=== PATIENT | female | born 1975 | race Caucasian/White ===

== ENCOUNTER 2017-12-27 13:06 | Emergency (ER) | payer MEDICAID, SELFPAY ==
[2017-12-27 13:11] VITALS: BP 137/107; PULSE 94; RESP 20; TEMP 37.6; O2SAT 99
--- NOTE | 2017-12-27 15:55 | W.ED.GENAD ---
Discharge Plan Disposition Patient Disposition: HOME Condition: Good Discharge Details Chief Complaint: RashLesion Clinical Impression: Rash Primary Care Provider: NONE,NONE ED Provider: Agustin Galeana Home Meds and New Rx's Prescriptions: New clotrimazole-betamethasone [Lotrisone] 1-0.05 % cream 1 applic TP BID 14 Days Qty: 45 RF: 0 diphenhydramine HCl 25 mg capsule 25 mg PO Q6H PRN (Reason: itching) Qty: 30 RF: 0 No Action omeprazole magnesium [Prilosec] 10 mg Susp,Delayed Release For Recon 40 mg PO DAILY RF: 0 Discharge Instructions Instructions: Acute Rash (ED) Additional Instructions: Please take the cream as directed, apply to the affected areas twice daily. Please make sure to wash all your close and hot water as well as your bed sheets. Please check your bed for any signs of bedbugs. If you notice any worsening of your symptoms, or any new symptoms such as vomiting, diarrhea, fever, chills, shortness of breath, chest pain, numbness, weakness, or fainting , please return immediately to the emergency department for reevaluation. Please follow up with your primary care provider as soon as possible for reassessment and reevaluation. As always, it was a pleasure participating in your medical care today. Discharge Data Discharge Date/Time-TO BE ENTERED AT DEPARTURE: 12/27/17 16:05 Medical Decision Making This is a 42-year-old female who presents for evaluation of a rash under her breasts and her groin. It is been present for the last 3 weeks. She states that it is improved slightly with nystatin powder, as well as ejhx-iqh-ixycqgb steroid ointment. She does admit to mild itching. Physical exam demonstrates no red flags of oral lesions, negative Nikolsky sign. No evidence of staph scalded skin syndrome, SJS, or TEN. No evidence of EM. Physical exam demonstrates an atypical rash, differential is broad, especially with her positive response to both steroids and antifungals. There does not appear to be any signs of scabies, however I am concerned for potential bedbugs. Patient denies any contact with bedbugs and states that she does look at her bed regularly. At this time we will prescribe an antifungal steroid combination cream, I recommended that she washes all of her bed sheets, and closed in hot water. And check for bedbugs. I also recommended that she chooses a new place of residence which she states that she is actively trying to do. We discussed red flags which to return, including the importance of close follow-up with her PCP and the patient understands. I have extensively reviewed the treatment plan and discharge instructions with the patient. I have addressed all patient concerns at this time. The patient was made aware of what symptoms to monitor for that would warrant a return to the emergency department. Discussed the plan with the patient, they demonstrate verbal understanding and agreement with our assessment and plan at this time. HPI General Date/Time Provider Initiated Documentation: 12/27/17 15:54. HPI Narrative: This is a 42-year-old female with a past medical history of depression who presents for evaluation of rash. Patient states that she was recently from her significant other, and moved into a new house which she describes as a hoarder house, she states that 3 weeks ago she developed a mild rash underneath her breasts, and now it has spread to her lower abdomen. Patient states that about a week and a half ago she tried using some nystatin powder which showed some improvement to her symptoms, she then switched to djou-gem-tubohnn steroid cream which also showed some improvement. However she came in today for evaluation of the potential cause of her symptoms. She does admit to itching. She denies any lesions in her mouth. She denies any vesicles. She denies any history of allergic reaction, chest pain, shortness of breath, recent tick bites, numbness tingling or weakness. She denies any other associated complaints at this time, she denies any other close contacts with similar rash. She denies any recent surgery, pertinent family history. She denies any IV or illicit drug use Related Data Home Medications Medication Instructions Recorded Confirmed clotrimazole-betamethasone 1 applic TP BID 14 Days #45 gm 12/27/17 [Lotrisone] diphenhydramine HCl 25 mg PO Q6H PRN #30 cap 12/27/17 omeprazole magnesium [Prilosec] 40 mg PO DAILY 12/27/17 12/27/17 Previous Rx's Medication Instructions Recorded clotrimazole-betamethasone 1 applic TP BID 14 Days #45 gm 12/27/17 [Lotrisone] diphenhydramine HCl 25 mg PO Q6H PRN #30 cap 12/27/17 Allergies Allergy/AdvReac Type Severity Reaction Status Date / Time prochlorperazine maleate AdvReac Severe Unverified 12/27/17 13:13 [From Compazine] General Stated Complaint: RashLesion GABRIELLE: 5 Review of Systems Review of Systems All systems reviewed & are unremarkable except as noted in HPI and below PFSH Family History Father Hyperlipidemia Medical History Depression Gastroesophageal reflux disease Impaired hearing Tobacco use disorder Social History Smoking/Tobacco Use Status: Current every day Surgical History Cervical Conization/LEEP Cholecystectomy Exam Narrative Exam Narrative: 1.Const: Well-nourished, Well-developed, appearing stated age 2.Eyes: PERRL, no conjunctival injection, and symmetrical lids. 3.ENT: Atraumatic external nose and ears. Moist MM. Neck: Symmetric, trachea midline, No thyromegaly. 4.CVS: +S1/S2, No murmurs or gallops. Peripheral pulses 2+ and equal in all extremities. Brisk capillary refill in all extremities. 5.RESP: Unlabored respiratory effort. Clear to auscultation bilaterally. No wheezes rales or rhonchi 6.GI: Soft, Nontender/Nondistended, No hepatosplenomegaly. No guarding or rebound. 7.MSK: Normocephalic/Atraumatic, Extremities w/o deformity or ttp No cyanosis or clubbing, Normal movement of all extremities 8.Skin: Patient demonstrates a mildly punctated erythematous rash underneath her breasts bilaterally and around her groin. There are some extensions by her sock line at her ankles. No oral lesions, no lesions on the hands or feet specifically. Rash is blanchable. No vesicles, no discharge. No linear lines on the intertriginous areas on her hands, elbows, or axillary region. Negative Nikolsky sign. No evidence of ulcer. 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 Sensation grossly intact, no focal neurologic deficits. 10.Psych: (AAO) x3. Appropriate mood and affect Course Vital Signs Temperature 37.6 C 12/27/17 13:11 Pulse 94 H 12/27/17 13:11 Respiratory Rate 20 12/27/17 13:11 Blood Pressure 137/107 H 12/27/17 13:11 Pulse Oximetry 99 12/27/17 13:11 Temperature 37.6 C 12/27/17 13:11 Temperature Source Temporal Artery Scan 12/27/17 13:11 Pulse 94 H 12/27/17 13:11 Respiratory Rate 20 12/27/17 13:11 Respiratory Effort 12/27/17 13:14 Blood Pressure 137/107 H 12/27/17 13:11 Blood Pressure Position Sitting 12/27/17 13:11 Pulse Oximetry 99 12/27/17 13:11 Oxygen Delivery Method Room Air 12/27/17 13:11 Oxygen Flow Rate 0 12/27/17 13:11 Pain Level 0 12/27/17 13:11
== END 2017-12-27 16:05 | disposition home or self-care (01) ==
PROVIDERS: Emergency Provider Student in an Organized Health Care Education/Training Program
DX: R21 Rash and other nonspecific skin eruption (principal)
CPT/HCPCS: 99283

== ENCOUNTER 2018-02-11 14:48 | Outpatient (REF) | payer MEDICAID, SELFPAY ==
--- NOTE | 2018-02-11 13:30 | PAPFT_PTH ---
PATIENT: Fátima Infante LOC: [facility] U#:[id number] AGE/SX: 43/F ROOM: RE02/11/[address]: Sierra Watkins APRN : 1975 BED: DIS: 02/11/2018 SPEC #: [id number] RECD: 02/12/18 13:09 STATUS: CASTILLO COLLIER #: [id number] JAE: 02/11/18 13:[address]: Sierra Watkins DEPT: COUNT INCLUDES THE [facility] Cytology RECD BY: Neida London Tissues: 1 - CX/ENDOCX FOR PAP SMEARS Procedures: PAP THIN PREP/UVM Screening HPV DNA PROBE Comments: [id number]
== END 2018-02-11 15:08 ==
LOC: LBN 14:48
PROVIDERS: PCP Nurse Practitioner; Visit Provider Nurse Practitioner
DX: Z12.4 Encounter for screening for malignant neoplasm of cervix (principal); Z11.51 Encounter for screening for human papillomavirus (HPV)
CPT/HCPCS: 88142; 87624

== ENCOUNTER 2018-02-16 01:14 | Outpatient (CLI) | payer MEDICAID, SELFPAY ==
--- NOTE | 2018-02-16 13:10 | DI.MAMMO_ITS ---
SYMPTOM/DIAGNOSIS: SCREENING, Z12.31 MAMMOGRAMS: Mammograms were interpreted according to the usual protocol including computer analysis with CAD system, tomosynthesis and C view imaging. The patient states previous exams 10 years ago from [place], [place]. which are no longer available for comparison. The breasts are composed of scattered fibroglandular densities, breast density, Category B. There are two areas of nodularity seen in the subareolar region of the right breast, one superiorly and the other in the lower inner quadrant. Spot compression views and ultrasound are requested for further evaluation. No significant abnormality is seen in the left breast. IMPRESSION: Left breast, category 1, negative. Right breast, category 0. SA ASSESSMENT OF FINDINGS: Incomplete: Needs additional imaging evaluation. Category 0. Patient will receive a letter notifying them of these results. BI-RADS category B. There are scattered areas of fibroglandular density.
== END 2018-02-16 01:34 ==
PROVIDERS: PCP Nurse Practitioner; Visit Provider Nurse Practitioner
DX: Z12.31 Encounter for screening mammogram for malignant neoplasm of breast (principal); R92.8 Other abnormal and inconclusive findings on diagnostic imaging of breast
CPT/HCPCS: 77063; 77067

== ENCOUNTER 2018-03-05 06:40 | Outpatient (CLI) | payer MEDICAID, SELFPAY ==
--- NOTE | 2018-03-05 14:45 | DI.COMBO_ITS ---
SYMPTOMS/DIAGNOSIS: F/U ABNORMAL MAMMO, TWO AREAS OF NODULARITY, RIGHT, ONE SUPERIORLY AND THE OTHER LOWER INNER QUADRANT ADDITIONAL VIEWS OF THE RIGHT BREAST AND RIGHT BREAST ULTRASOUND: Additional images are interpreted according to the usual protocol including tomosynthesis and 2D imaging. There is again seen a well-circumscribed nodule in the lower inner quadrant of the right breast. No other suspicious nodules are seen on the additional views of the right breast. Breast density B. A right breast ultrasound was performed. In the retroareolar region of the right breast, there is a 0.9 cm anechoic round avascular lesion, most consistent with a simple cyst. A small collection of cysts is seen in the lower inner quadrant of the right breast measuring 0.7 cm. No internal blood flow, posterior acoustic enhancement or shadowing is seen. No suspicious cystic or solid masses are seen sonographically. IMPRESSION: No evidence for malignancy. Yearly mammography is recommended. Category 2. The findings were discussed with the patient on the date of the examination. MQSA ASSESSMENT OF FINDINGS: Negative with benign findings. Category 2. Patient will receive a letter notifying them of these results. BI-RADS category B. There are scattered areas of fibroglandular density.
== END 2018-03-05 07:00 ==
PROVIDERS: PCP Nurse Practitioner; Visit Provider Nurse Practitioner
DX: Z12.31 Encounter for screening mammogram for malignant neoplasm of breast (principal); R92.8 Other abnormal and inconclusive findings on diagnostic imaging of breast; N60.11 Diffuse cystic mastopathy of right breast
CPT/HCPCS: 76642; 77063; 77067

== ENCOUNTER 2018-03-16 15:47 | Outpatient (REF) | payer MEDICAID, SELFPAY ==
--- NOTE | 2018-03-16 14:00 | CER_PTH ---
PATIENT: Fátima Infante LOC: [facility] U#:[id number] AGE/SX: 43/F ROOM: RE03/16/[address]: Julia Wooten MD : 1975 BED: DIS: 03/16/2018 SPEC #: [id number] RECD: 03/16/18 17:28 STATUS: CASTILLO REQ #: [id number] JAE: 03/16/18 14:[address]: Julia Wooten DEPT: Surgical Specimen RECD BY: Neida London ENTERED: 03/16/18 17:31 SP TYPE: CER ANTONIA DR: Sierra Watkins APRN Tissues: 1 - CERVICAL BIOPSY 2 - CERVICAL BIOPSY 3 - ENDOCERVICAL BX/CURRETTE Procedures: GROSS AND MICRO LEVEL 4 Comments: [id number]
== END 2018-03-16 16:07 ==
LOC: LBN 15:47
PROVIDERS: PCP Nurse Practitioner; Visit Provider Obstetrics & Gynecology
DX: N87.9 Dysplasia of cervix uteri, unspecified (principal); R87.610 Atypical squamous cells of undetermined significance on cytologic smear of cervix (ASC-US); B97.7 Papillomavirus as the cause of diseases classified elsewhere
CPT/HCPCS: 88305

== ENCOUNTER 2019-03-01 14:15 | Outpatient (CLI) | payer MEDICAID, SELFPAY ==
[2019-03-01 15:05] LABS: HCT 42.3 % (36.0-46.0); HGB 14.2 g/dL (12.0-15.5); Mean Corp. HGB Concentration 33.6 g/dL (32.0-36.0); Mean Corpuscular Volume 89.4 fL (80-95); Mean Platelet Volume 9.6 fL (8.0-11.0); Platelet Count 313 x1000/uL (130-400); RBC 4.73 m/cumm (4.00-5.20); RBC Distribution Width 12.8 % (11.7-14.6); White Blood Cell Count 10.72 k/cumm (4.4-10.8)
[2019-03-01 15:39] LABS: ALT 22 U/L (14-59); AST 11 U/L (15-37); Albumin 3.9 g/dL (3.4-5.0); Alkaline Phosphatase 61 U/L (46-116); Anion Gap 6.9 mmol/L (3-11); BUN 8 mg/dL (7-18); Bilirubin, Total 0.4 mg/dL (0.2-1.0); CO2 29.1 mmol/L (21.0-32.0); CREATININE 0.76 mg/dL (0.55-1.02); Calcium 8.8 mg/dL (8.5-10.1); Calculated LDL 144 mg/dL; Chloride 102 mmol/L (98-107); Cholesterol 196 mg/dL (<200); Glucose 86 mg/dL (74-106); HDL Cholesterol 40 mg/dL (40-60); Sodium 138 mmol/L (136-145); Total Protein 6.9 g/dL (6.4-8.2); Triglyceride 64 mg/dL (<150)
== END 2019-03-01 14:35 ==
PROVIDERS: PCP Nurse Practitioner; Visit Provider Nurse Practitioner
DX: F32.9 Major depressive disorder, single episode, unspecified (principal); K21.9 Gastro-esophageal reflux disease without esophagitis; E66.9 Obesity, unspecified
CPT/HCPCS: 36415; 80053; 80061; 85027

== ENCOUNTER 2019-03-03 16:13 | Outpatient (REF) | payer MEDICAID, SELFPAY ==
--- NOTE | 2019-03-03 15:45 | PAPFT_PTH ---
PATIENT: Fátima Infante LOC: [facility] U#:[id number] AGE/SX: 44/F ROOM: RE03/03/[address]: Sierra Watkins APRN : 1975 BED: DIS: 03/03/2019 SPEC #: [id number] RECD: 03/03/19 18:04 STATUS: CASTILLO COLLIER #: [id number] JAE: 03/03/19 15:[address]: Sierra Watkins DEPT: [facility] Cytology RECD BY: Neida London Tissues: 1 - CX/ENDOCX FOR PAP SMEARS Procedures: PAP THIN PREP/UVM Screening HPV DNA PROBE Comments: [id number]
== END 2019-03-03 16:33 ==
LOC: LBN 16:13
PROVIDERS: PCP Nurse Practitioner; Visit Provider Nurse Practitioner
DX: Z12.4 Encounter for screening for malignant neoplasm of cervix (principal); Z11.51 Encounter for screening for human papillomavirus (HPV)
CPT/HCPCS: 88142; 87624

== ENCOUNTER 2019-03-23 11:06 | Outpatient (CLI) | payer MEDICAID, SELFPAY ==
--- NOTE | 2019-03-23 10:54 | DI.RAD_ITS ---
EXAM: XR ANKLE LT COMPLETE INDICATION: pain. COMPARISON: No exams were available for comparison TECHNIQUE: 2D digital imaging was performed. FINDINGS: There is deformity of the distal fibula which may represent an old injury. The bones appear normally mineralized. No soft tissue swelling is seen. There is a lucency seen in the medial aspect of the talar dome. This may represent an osteochondral injury.
--- NOTE | 2019-03-23 10:55 | DI.RAD_ITS ---
EXAM: XR FOOT LT COMPLETE INDICATION: pain. COMPARISON: No exams were available for comparison TECHNIQUE: 2D digital imaging was performed. FINDINGS: There is deformity of the distal fibula. This is of uncertain acuity. If there is continued concern, a CT scan of the ankle may be obtained. Benign-appearing focus of sclerosis is seen in the 2nd metat arsal. Articular surfaces are well maintained. The soft tissues are unremarkable.
== END 2019-03-23 11:26 ==
PROVIDERS: PCP Nurse Practitioner; Visit Provider Orthopaedic Surgery
DX: M79.672 Pain in left foot (principal); M25.572 Pain in left ankle and joints of left foot; M21.862 Other specified acquired deformities of left lower leg
CPT/HCPCS: 73610; 73630

== ENCOUNTER 2019-11-29 17:29 | Emergency (ER) | payer MEDICAID, SELFPAY ==
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
[2019-11-29 17:37] VITALS: BP 131/80; PULSE 86; RESP 16; TEMP 36.2; O2SAT 99
--- NOTE | 2019-11-29 18:59 | NUR.NOTE ---
Nursing Note:RERFERAL SENT TO [facility] TO FOLLOW UP IN TWO DAYS 11/29/19
== END 2019-11-29 19:00 | disposition home or self-care (01) ==
LOC: ER 20:32
PROVIDERS: Emergency Provider Physician Assistant; PCP Nurse Practitioner
DX: L02.434 Carbuncle of left upper limb (principal)
CPT/HCPCS: 10061; 87070; 87205

== ENCOUNTER 2020-08-27 13:08 | Emergency (ER) | payer OTHER, SELFPAY ==
[2020-08-27 13:14] VITALS: BP 152/87; PULSE 83; TEMP 36.9; O2SAT 98
[2020-08-27] MEDS: Balanced Salt Solution 15 ML BTL (13:35)
[2020-08-27] MEDS: Tetracaine 0.5% 4 ML BTL (13:35)
[2020-08-27] MEDS: Fluorescein STRIPS 100/BOX 1 MG (13:35)
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
== END 2020-08-27 14:00 | disposition home or self-care (01) ==
PROVIDERS: Emergency Provider Physician Assistant; PCP Nurse Practitioner
DX: S05.01XA Injury of conjunctiva and corneal abrasion without foreign body, right eye, initial encounter (principal); W22.8XXA Striking against or struck by other objects, initial encounter; Y99.0 Civilian activity done for income or pay
CPT/HCPCS: 99283

== ENCOUNTER 2021-02-13 00:20 | Outpatient (CLI) | payer MEDICAID, SELFPAY ==
--- NOTE | 2021-02-13 06:45 | DI.MAMMO_ITS ---
Exam(s) MAMMO SCREENING EXAM: MAMMO SCREENING CLINICAL HISTORY: screening,Z12.39. TECHNIQUE: Bilateral full field digital CC and MLO mammographic images were obtained with 3D tomosyn thesis and utilizing computer aided detection (CAD). COMPARISON: Prior mammogram of January 2018 and diagnostic of March 03. Breast ultrasound March 2018 was reviewed. FINDINGS: Fibroglandular tissue pattern is again noted be moderately dense, this somewhat decreasing the sensit ivity mammogram for finding in underlying lesions. In the right breast the previously present retroareolar region nodule is no longer seen, further evid ence that it was a benign cyst, as evident on the prior ultrasound examination listed above. There are no new focal findings in the right breast. In the left breast there is small benign-appear ing nodular density appears unchanged. Probably benign lymph node. No malignant-appearing microcalcification groups in either breast and there is no new architectural d istortion or skin thickening-traction IMPRESSION: Dense bilateral fibroglandular tissue. No radiographic evidence of malignancy. The previously prese nt cyst seen anteriorly in the right breast in January 2018/March 2018 is no longer seen. BI-RADS Category 1 - Negative Breast Density - Category C - Heterogeneously dense Breast density Category C or D implies that the patient has dense breast tissue. Dense breast tissue can make it harder to find cancer on a mammogram. Dense breast tissue is also associated with an incr eased risk of breast cancer. This information about the result of the mammogram report was provided to the patient to raise their awareness. Use this report when you speak with the patient about their risks for breast cancer, which includes their family history. At that time, you may recommend additional screening tests (Ultrasoun d or MRI) as these tests may add significant information. A negative radiographic report should not delay biopsy if a dominant or clinically suspicious mass is present. Up to ten percent of cancers are not identified on mammography. A negative report may reinforce clinical impression. Adenosis and dense breasts may obscure an underlying neoplasm. False positive reports average 6 to 10%. Patient will receive a letter notifying them of these results.
== END 2021-02-13 00:40 ==
PROVIDERS: PCP Nurse Practitioner; Visit Provider Nurse Practitioner
DX: Z12.31 Encounter for screening mammogram for malignant neoplasm of breast (principal); R92.8 Other abnormal and inconclusive findings on diagnostic imaging of breast
CPT/HCPCS: 77063; 77067

== ENCOUNTER 2021-08-26 13:11 | Outpatient (CLI) | payer MEDICAID, SELFPAY ==
[2021-08-26 12:18] LABS: HCT 42.4 % (36.0-46.0); HGB 14.3 g/dL (11.2-15.7); MCHC 33.7 % (32.0-36.0); MCV 89 fL (80-95); MPV 8.9 fL (8.0-11.0); Platelet Count 276 10^3/uL (130-400); RBC 4.76 10^6/uL (3.93-5.22); RDW 13.2 % (11.7-14.6); RDW-SD 43.5 fL; WBC 7.98 10^3/uL (4.4-10.8)
[2021-08-26 13:12] LABS: ALT 24 U/L (14-59); AST 16 U/L (15-37); Albumin 3.5 g/dL (3.4-5.0); Alkaline Phosphatase 52 U/L (46-116); Anion Gap 5.5 mmol/L (3-11); BUN 10 mg/dL (7-18); Bilirubin, Total 0.4 mg/dL (0.2-1.0); CO2 29.5 mmol/L (21.0-32.0); CREATININE 0.6 mg/dL (0.55-1.02); Calcium 8.5 mg/dL (8.5-10.1); Calculated LDL 135 mg/dL (<100); Chloride 103 mmol/L (98-107); Cholesterol 202 mg/dL (<200); Glucose 84 mg/dL (74-106); HDL Cholesterol 40 mg/dL (40-60); Potassium 3.9 mmol/L (3.5-5.1); Sodium 138 mmol/L (136-145); TSH (W/Ref FT4) 0.74 uIU/mL (0.36-3.74); Total Protein 6.5 g/dL (6.4-8.2); Triglyceride 137 mg/dL (<150)
[2021-08-27 10:19] LABS: HIV-1/2 Ag & Ab Screen Negative (Negative)
[2021-08-27 10:25] LABS: Hepatitis C Ab w Rflx HCV PCR Negative (Negative)
== END 2021-08-26 13:12 | disposition home or self-care (01) ==
LOC: LBO 13:14
PROVIDERS: PCP Nurse Practitioner; Visit Provider Nurse Practitioner
DX: F41.9 Anxiety disorder, unspecified (principal); F32.9 Major depressive disorder, single episode, unspecified; E66.8 Other obesity; Z11.59 Encounter for screening for other viral diseases; Z11.4 Encounter for screening for human immunodeficiency virus [HIV]
CPT/HCPCS: 36415; 80053; 80061; 85027; 86803; 87389; 84443

== ENCOUNTER 2022-05-26 14:21 | Outpatient (CLI) | payer MEDICAID, SELFPAY ==
[2022-05-26 15:58] LABS: Abs Immature Grans 0.02 10^3/uL (0.0-0.06); Absolute Basophil Count 0.07 10^3/uL (0.0-0.2); Absolute Eosinophil Count 0.18 10^3/uL (0.0-0.7); Absolute Lymphocyte Count 4.55 10^3/uL (1.2-3.4); Absolute Monocyte Count 0.48 10^3/uL (0.1-0.8); Absolute Neutrophil Count 4.02 10^3/uL (1.2-6.7); Basophils % 0.8; Eosinophils % 1.9; HCT 46.7 % (36.0-46.0); HGB 15.3 g/dL (11.2-15.7); Immature Grans % 0.2; Lymphocytes % 48.8; MCH 28.9 pg (27.0-33.0); MCHC 32.8 % (32.0-36.0); MCV 88 fL (80-95); MPV 9.6 fL (8.0-11.0); Monocytes % 5.2; Neutrophils % 43.1; Platelet Count 300 10^3/uL (130-400); RDW 12.6 % (11.7-14.6); RDW-SD 41.2 fL; WBC 9.32 10^3/uL (4.4-10.8)
[2022-05-26 16:32] LABS: Hemoglobin A1C 6.2 % (<5.7)
[2022-05-26 16:52] LABS: ALT 27 U/L (14-59); AST 16 U/L (15-37); Albumin 3.6 g/dL (3.4-5.0); Alkaline Phosphatase 67 U/L (46-116); Anion Gap 7.5 mmol/L (3-11); BUN 11 mg/dL (7-18); Bilirubin, Total 0.2 mg/dL (0.2-1.0); CO2 25.5 mmol/L (21.0-32.0); CREATININE 0.7 mg/dL (0.55-1.02); Chloride 105 mmol/L (98-107); Estimated GFR 105.95 (mL/min/1.73m2); Glucose 108 mg/dL (74-106); Potassium 3.8 mmol/L (3.5-5.1); Sodium 138 mmol/L (136-145); TSH (W/Ref FT4) 1.28 uIU/mL (0.36-3.74); Total Protein 7.1 g/dL (6.4-8.2)
[2022-05-26 18:11] LABS: Vitamin B12 317 pg/mL (193-986)
[2022-05-27 17:47] LABS: Rheumatoid Factor <8.6 IU/mL (<12.0)
[2022-05-27 18:25] LABS: Estradiol 44 pg/mL (See Note)
[2022-05-27 19:01] LABS: FSH 59.6 mIU/mL (See Note); LH 43.1 mIU/mL (See Note)
[2022-05-28 10:41] LABS: Lyme Ab w Rflx to Lyme Confirm Negative (Negative)
[2022-05-28 15:28] LABS: ANA Interpretation Positive (Negative); ANA Titer Pattern 1:160 Speckled
[2022-05-30 14:08] LABS: Anaplasma phagocytophilum Negative (Negative); B. miyamotoi PCR Negative (Negative); Babesia divergens/MO-1 Negative (Negative); Babesia duncani Negative (Negative); Babesia microti Negative (Negative); Ehrlichia chaffeensis Negative (Negative); Ehrlichia ewingii/canis Negative (Negative); Ehrlichia muris eauclairensis Negative (Negative)
== END 2022-05-26 14:22 | disposition home or self-care (01) ==
LOC: LBO 14:26
PROVIDERS: PCP Nurse Practitioner; Visit Provider Nurse Practitioner
DX: N91.2 Amenorrhea, unspecified (principal); R53.83 Other fatigue; R14.0 Abdominal distension (gaseous); R63.5 Abnormal weight gain; F32.89 Other specified depressive episodes; K21.9 Gastro-esophageal reflux disease without esophagitis; M25.572 Pain in left ankle and joints of left foot; E66.9 Obesity, unspecified; R68.89 Other general symptoms and signs
CPT/HCPCS: 36415; 80053; 87798; 82607; 82670; 83001; 83002; 83036; 84443; 85025; 86038; 86431; 86618

== ENCOUNTER 2022-06-11 01:37 | Outpatient (CLI) | payer MEDICAID, SELFPAY ==
--- NOTE | 2022-06-11 08:00 | DI.MAMMO_ITS ---
Exam(s) MAMMO SCREENING EXAM: MAMMO SCREENING CLINICAL HISTORY: screening.Z12.39 TECHNIQUE: Mammograms were interpreted according to the usual protocol including computer analysis w Ripl CAD system, tomosynthesis and C-view imaging. COMPARISON: 2017 and 2020 FINDINGS: The breasts are composed of heterogeneously dense fibroglandular densities, Breast Density category C . No suspicious masses or suspicious microcalcifications are seen. No skin thickening or abnormal axillary lymph nodes are seen. There has been no significant change from prior exams. IMPRESSION: BI-RADS Category 1, Negative mammogram. Yearly screening mammography is recommended. Breast Density Category C, heterogeneously Dense. The mammogram demonstrates the patient's breast tissue is dense. Dense breast tissue is very common a nd is not abnormal but dense breast tissue can make it harder to find cancer on a mammogram. Also, de nse breast tissue may increase breast cancer risk. This information about the result of the mammogram report was provided to the patient to raise their awareness. Use this report when you speak with the patient about their risks for breast cancer, which includes their family history. At that time, you may recommend additional screening tests (Ultrasound or MRI) as they might be useful based on their r isk. A negative radiographic report should not delay biopsy if a dominant or clinically suspicious mass is present. Up to ten percent of cancers are not identified on mammography. A negative report may reinforce clinical impression. Adenosis and dense breasts may obscure an underlying neoplasm. False positive reports average 6 to 10%.
== END 2022-06-11 01:57 ==
LOC: DI 01:37
PROVIDERS: PCP Nurse Practitioner; Visit Provider Nurse Practitioner
DX: Z12.31 Encounter for screening mammogram for malignant neoplasm of breast (principal)
CPT/HCPCS: 77063; 77067

== ENCOUNTER 2022-11-24 01:59 | Outpatient (CLI) | payer MEDICAID, SELFPAY ==
[2022-11-24 07:49] LABS: Hemoglobin A1C 6.1 % (<5.7)
[2022-11-24 08:24] LABS: Calculated LDL 116 mg/dL (<100); Cholesterol 179 mg/dL (<200); HDL Cholesterol 43 mg/dL (40-60); Triglyceride 104 mg/dL (<150)
[2022-11-25 10:31] LABS: dsDNA Ab, IgG <12.3 IU/mL (<30.0)
[2022-11-25 15:15] LABS: ANA Interpretation Positive (Negative); ANA Titer Pattern 1:80 Speckled
== END 2022-11-24 02:00 | disposition home or self-care (01) ==
LOC: LBO 01:59
PROVIDERS: PCP Nurse Practitioner; Visit Provider Nurse Practitioner
DX: R73.03 Prediabetes (principal); R76.8 Other specified abnormal immunological findings in serum
CPT/HCPCS: 36415; 80061; 83036; 86038; 86225

== ENCOUNTER 2023-01-09 11:45 | Day surgery (SDC) | payer MEDICAID, SELFPAY ==
--- NOTE | 2023-01-08 11:40 | PDOC.DSDIS_ITS ---
Date of service: 01/09/23 Time of Service: 13:17 Discharge Plan Disposition Patient Disposition: Home Condition: Good Discharge Details Reason For Visit: colon sscope Attending Provider: Rita Montoya Primary Care Provider: Sierra Watkins Home Meds and New Rx's Prescriptions: Continued bupropion HCl [Wellbutrin XL] 150 mg tablet extended release 24 hr 150 mg PO QAM Qty: 90 3RF omeprazole 40 mg capsule,delayed release(DR/EC) See Rx Instructions .ROUTE .COMPLEX Qty: 90 3RF Dose Instruction: TAKE ONE CAPSULE BY MOUTH EVERY DAY Rx Instructions: TAKE ONE CAPSULE BY MOUTH EVERY DAY doxycycline monohydrate 100 mg capsule 100 mg PO BID Qty: 28 0RF Discontinued bisacodyl [Dulcolax (bisacodyl)] 5 mg tablet,delayed release (DR/EC) 5 mg PO ONCE Qty: 4 0RF Rx Instructions: Take per colonoscopy instructions provided by ordering providers office polyethylene glycol 3350 17 gram/dose powder 17 g PO ONCE Qty: 238 0RF Rx Instructions: Take per colonoscopy instructions provided by ordering providers office Discharge Instructions Additional Instructions: DSU Colonoscopy Post- Op Instructions Instructions for Everyone who is given Anesthesia: For your safety, please do the following for the next twenty-four (24) hours: *Do Not operate a motor vehicle (car, truck, motorcycle, etc.) *Do Not drink alcoholic beverages or use any recreational drugs for the first 24 hours or while taking pain medications. The medications in your body may have a reaction that can be dangerous. *Do Not make any important decisions or sign any important papers. Findings: Adenomatous polyps Follow up: My office will send a letter in 2 to 3 weeks time with the results of the pathology, and when we want you to repeat the colonoscopy. Most likely in 3 to 5 years time. 1. No lifting over 20 pounds or strenuous activity for the first 24 hours after your procedure. After 24 hours there are no restrictions on your activity but you may feel fatigued for a few days. 2. After you arrive home you may have a light meal and return to your normal diet as you can tolerate it without feeling sick to your stomach. 3. You may have a bloated, gaseous feeling in your belly (abdomen) after a colonoscopy. Passing gas and belching will help. Walking or lying down on your left side with your knees flexed may relieve the discomfort. Call the office at [phone] (Office) or [phone] (Hospital) right away if you notice any of the following: a.Vomiting of blood or ?coffee ground stools?. b.Rectal bleeding 1Tbsp, blood clots or continuous bleeding. c.Severe belly (abdominal) pain. d.A hard distended belly (abdomen) and an inability to pass gas. 4. Please don?t expect to have a normal BM (bowel movement) for 2-3 days after your procedure. 5. If there are questions regarding the findings of your procedure, please contact your doctor 6. If you are unable to contact your doctor with a problem, contact the hospital at [phone]. 7. Continue all your regular medications unless directed otherwise. I understand the above instructions and have no questions. Signature of Patient or Adult Escort Name of Responsible Adult Escort Signature of Nurse Date/Time Activity:: see above Diet:: see above Discharge Orders Discharge Orders: Discharge Order (Routine); Ordered 01/09/23 Ordered By: Rita Montoya DS: Diagnosis Discharge Diagnosis (1) Positive colorectal cancer screening using Cologuard test: Status: Acute Asessment and Plan: The patient is seen and examined after their colonoscopy.? The patient has been able to pass gas.? They are not having abdominal pain.? They have been able to tolerate liquids and a snack.? They do not have any nausea or vomiting.? They are not having any chest pain or shortness of breath.??? They are not having any rectal bleeding. Their vital signs have been stable-see nursing notes. We discussed findings during their colonoscopy, and any biopsies that were done/polyps that were removed. The patient will be sent a letter with any biopsy results, and when to repeat the colonoscopy.-see discharge instructions. Patient was given explicit instructions to follow-up regarding colonoscopy-refer to discharge instructions.? We reviewed resumption of medications. Patient verbalized understanding and discharged in stable and satisfactory condition- See nursing notes. (2) Pre-diabetes: Status: Acute (3) Class 1 obesity: Status: Acute (4) Anxiety: Status: Chronic (5) Tobacco use disorder: Status: Acute (6) Gastroesophageal reflux disease: Status: Acute (7) Adenomatous polyps: Status: Acute
--- NOTE | 2023-01-08 16:29 | COLE_ITS ---
Date of service: 01/09/23 Time of Service: 13:14 Colonoscopy Report Date of procedure: 01/09/23 Pre-op diagnosis general: +Cologuard Post-op diagnosis procedure note: other (Polyps) Surgeon: Rita Montoya Anesthesia Type: General:No Airway Estimated blood loss (mL): 1 Pathology: other Complications: None Disposition: same day Prep: Miralax/Dulcolax Retraction Time: 17 Procedure Description: After informed consent was obtained the patient was taken to the procedure room and placed in a left decubitous position. Monitors were applied and a time out was done. The patients name, date of , procedure, allergies to medications and metal in their body was reviewed. The patient was then sedated. Once sedated and comfortable a rectal exam was done. External exam was normal. Internal exam revealed a normal sphincter tone and no palpable masses. The scope was then introduced and retrofelexed. No internal hemorrhoids were identified. The scope was then advanced to the cecum without difficulty. The TI and appendiceal orifice were identified. The prep was BBPS 3 in all segments for a total of 9. The scope was then slowly retracted over 17 minutes back into the rectum. Polyps were removed at she had a 1 cm flat polyp at 90 cm that is removed with a cold snare. All specimen is retrieved and no bleeding is noted. A clip was placed at across the defect. She has a flat 0.5 cm polyp at 30 cm that is removed with a cold snare. She has another 0.5 cm flat polyp at 20 cm that is removed with a cold snare. Again all specimens are retrieved and no bleeding is noted. There are no AVMs or diverticula visualized today. The scope was removed and the patient was woken up and taken back to Same day surgery in stable condition. The patient tolerated the procedure well and there were no immediate compli cations. Follow up: The patient should follow up in 3-5 years unless they develop changes in bowel habits or other new gastrointestinal complaints.
[2023-01-09 11:56] VITALS: BP 131/86; PULSE 88; RESP 16; TEMP 36.1; O2SAT 97
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
[2023-01-09] MEDS: Lactated Ringers 1,000 ML 80 ML IV (12:25)
--- NOTE | 2023-01-09 12:58 | BOWEL_PTH ---
PATIENT: Fátima Infante LOC: [facility] U#:[id number] AGE/SX: 47/F ROOM: RE01/09/[address]: Rita Montoya : 1975 BED: DIS: 01/09/2023 SPEC #: [id number] RECD: 01/09/23 17:19 STATUS: CASTILLO RE #: [id number] JAE: 01/09/23 12:[address]: Rita Montoya DEPT: Surgical Specimen RECD BY: Neida London ENTERED: 01/09/23 17:21 SP TYPE: Bowel OTHR DR: Sierra Watkins APRN Tissues: 1 - BIOPSY BOWEL 2 - BIOPSY BOWEL 3 - BIOPSY BOWEL Procedures: GROSS AND MICRO LEVEL 4 Comments: [id number]
[2023-01-09 13:13] VITALS: BP 117/69; PULSE 72; RESP 16; TEMP 36.5; O2SAT 97
[2023-01-09 13:20] VITALS: BMI 30.8
--- NOTE | 2023-01-09 13:35 | W.ANESPOSTOP ---
Postoperative Evaluation Date, Time and Location Date Performed: 01/09/23 Time Performed: 13:35 Patient Location: Day Surgery Unit Vital Signs Most Recent Imported Vital Signs: Most Recent Vital Signs Temp Pulse Resp BP Pulse Ox 36.5 C 72 16 117/69 97 01/09/23 13:13 01/09/23 13:13 01/09/23 13:13 01/09/23 13:13 01/09/23 13:13 Pain Score Most Recent Pain Score: Most Recent Pain Score Pain Level 0 01/09/23 13:13 Assessment Mental Status: Awake (Alert & Oriented to Patient Baseline) Airway and Respiratory Function: Patent airway with normal (patient baseline) respiratory exam Cardiovascular Function: Hemodynamically Stable Hydration Status: Adequately Hydrated Nausea & Vomiting: No Nausea or Vomiting Pain: Pt. Denies Any Pain Peripheral Nerve Block: Patient did not receive a nerve block
[2023-01-09 13:43] VITALS: BP 126/94; PULSE 70; RESP 16; TEMP 36.6; O2SAT 97
== END 2023-01-09 14:12 | disposition home or self-care (01) ==
LOC: SUR 11:45
PROVIDERS: PCP Nurse Practitioner; Visit Provider Surgery
PROC: 0DJD8ZZ Inspection of Lower Intestinal Tract, Via Natural or Artificial Opening Endoscopic (ICD-10-PCS; CPT 45378; principal; 2023-01-09 12:45)
DX: Z12.11 Encounter for screening for malignant neoplasm of colon (principal); R19.5 Other fecal abnormalities; K63.5 Polyp of colon; F17.200 Nicotine dependence, unspecified, uncomplicated
CPT/HCPCS: 45385; 81025; 88305

== ENCOUNTER 2024-04-20 01:52 | Outpatient (CLI) | payer MEDICAID, SELFPAY ==
--- NOTE | 2024-04-20 07:15 | DI.MAMMO_ITS ---
Exam(s) MAMMO SCREENING EXAM: MAMMO SCREENING CLINICAL HISTORY: screening,Z12.39 TECHNIQUE: Bilateral full field digital CC and MLO mammographic images were obtained with 3D tomosyn thesis and utilizing computer aided detection (CAD). COMPARISON: Available for comparison. FINDINGS: Masses/Architectural Distortion: None seen. Microcalcifications: No suspicious pleomorphic-type are seen. Skin Thickening/Nipple Retraction: None. IMPRESSION: 1. No significant interval change with no specific features of malignancy noted. 2. Unless there is more urgent need, screening mammography is recommended, as per [employer] guidelines. BI-RADS Category 1 - Negative Breast Density - Category B - Scattered areas of fibroglandular density Breast density category C or D implies that the patient has dense breast tissue. Dense breast tissue is very common and is not abnormal but dense breast tissue can make it harder to find cancer on a ma mmogram. Also, dense breast tissue may increase their breast cancer risk. This information about the result of the mammogram report was provided to the patient to raise their awareness. Use this report when you speak with the patient about their risks for breast cancer, which includes their family hist ory. At that time, you may recommend for more screening tests (Ultrasound or MRI) as they might be us eful based on their risk. A negative radiographic report should not delay biopsy if a dominant or clinically suspicious mass is present. Up to ten percent of cancers are not identified on mammography. A negative report may reinforce clinical impression. Adenosis and dense breasts may obscure an underlying neoplasm. False positive reports average 6 to 10%. Patient will receive a letter notifying them of these results.
== END 2024-04-20 02:12 ==
PROVIDERS: PCP Nurse Practitioner; Visit Provider Nurse Practitioner
DX: Z12.31 Encounter for screening mammogram for malignant neoplasm of breast (principal); R92.323 Mammographic fibroglandular density, bilateral breasts
CPT/HCPCS: 77063; 77067

== ENCOUNTER 2024-04-25 03:13 | Outpatient (CLI) | payer MEDICAID, SELFPAY ==
[2024-04-25 07:36] LABS: HCT 44.1 % (36.0-46.0); HGB 14.4 g/dL (11.2-15.7); MCH 28.9 pg (27.0-33.0); MCHC 32.7 % (32.0-36.0); MCV 89 fL (80-95); MPV 8.7 fL (8.0-11.0); Platelet Count 241 10^3/uL (130-400); RBC 4.98 10^6/uL (3.93-5.22); RDW 13.2 % (11.7-14.6); RDW-SD 43.2 fL; WBC 8.48 10^3/uL (4.4-10.8)
[2024-04-25 08:05] LABS: ALT 24 U/L (14-59); AST 12 U/L (15-37); Albumin 3.3 g/dL (3.4-5.0); Alkaline Phosphatase 72 U/L (46-116); Anion Gap 4.8 mmol/L (3-11); BUN 13 mg/dL (7-18); Bilirubin, Total 0.28 mg/dL (0.2-1.0); CO2 29.2 mmol/L (21.0-32.0); CREATININE 0.9 mg/dL (0.55-1.02); Calcium 8.6 mg/dL (8.5-10.1); Calculated LDL 126 mg/dL (<100); Chloride 107 mmol/L (98-107); Cholesterol 184 mg/dL (<200); Glucose 120 mg/dL (74-106); HDL Cholesterol 49 mg/dL (40-60); Potassium 4.4 mmol/L (3.5-5.1); Sodium 141 mmol/L (136-145); Total Protein 6.6 g/dL (6.4-8.2); Triglyceride 45 mg/dL (<150)
== END 2024-04-25 03:14 | disposition home or self-care (01) ==
LOC: LBO 03:13
PROVIDERS: PCP Nurse Practitioner; Visit Provider Nurse Practitioner
DX: R73.03 Prediabetes (principal); R79.9 Abnormal finding of blood chemistry, unspecified
CPT/HCPCS: 36415; 80053; 80061; 85027

== ENCOUNTER 2024-06-18 14:39 | Emergency (ER) | payer MEDICAID, SELFPAY ==
[2024-06-18 14:42] VITALS: BP 148/93; PULSE 75; RESP 18; TEMP 36.3; O2SAT 99
[2024-06-18 14:46] VITALS: BP 148/93; PULSE 75; RESP 18; TEMP 36.3; O2SAT 99
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
--- NOTE | 2024-06-18 15:53 | DI.RAD_ITS ---
Exam(s) XR HAND RT COMPLETE EXAM: XR HAND RT COMPLETE CLINICAL HISTORY: Middle finger pain. TECHNIQUE: 2D digital imaging was performed. COMPARISON: No exams were available for comparison FINDINGS: 3 views No evidence of fracture or dislocation or abnormal soft tissue calcifications. Bone density normal. No osseous lesions. No erosions. No degenerative changes. No radiopaque foreign bodies. IMPRESSION: No significant osseous findings in the right hand. DATA REPOSITORY: RADIATION DOSE DELIVERED:
== END 2024-06-18 16:26 | disposition home or self-care (01) ==
PROVIDERS: Emergency Provider Registered Nurse Emergency; PCP Nurse Practitioner
DX: M25.441 Effusion, right hand (principal)
CPT/HCPCS: 99283; 73130

== ENCOUNTER 2024-06-22 10:47 | Outpatient (CLI) | payer MEDICAID, SELFPAY ==
[2024-06-22 12:17] LABS: Uric Acid 3.3 mg/dL (2.6-6.0)
== END 2024-06-22 10:48 | disposition home or self-care (01) ==
LOC: LBO 10:48
PROVIDERS: PCP Nurse Practitioner Family; Visit Provider Nurse Practitioner Family
DX: M25.441 Effusion, right hand
CPT/HCPCS: 36415; 84550

== ENCOUNTER 2024-09-14 12:37 | Outpatient (CLI) | payer MEDICAID, SELFPAY ==
--- NOTE | 2024-09-14 12:15 | DI.RAD_ITS ---
Exam(s) XR CERVICAL SPINE COMP 4-5V EXAM: XR CERVICAL SPINE COMP 4-5V CLINICAL HISTORY: neck pain,RT SIDED,M54.2. TECHNIQUE: 2D digital imaging was performed. Five images were obtained. AP, odontoid, lateral and bilateral oblique images were obtained. COMPARISON: No exams were available for comparison FINDINGS: The odontoid is intact. The lateral masses are well aligned. There is normal alignment of the cervical spine. There are endplate osteophytes seen at C5-6 through C7-T1. There is disc space narrowing at C6-7. Degenerative changes of the facets are present at C3-C4 through C5-C6. No acute fracture or subluxation is present. There does appear to be narrowing of the neural foramen on the right at C5-6 and C6-C7 and on the left at C6-C7. The cervical thoracic junction is well maintained. The prevertebral soft tissues are unremarkable. Lung apices are clear. IMPRESSION: [id number] cervical spondylosis. DATA REPOSITORY: RADIATION DOSE DELIVERED:
== END 2024-09-14 12:57 ==
PROVIDERS: PCP Nurse Practitioner Family; Visit Provider Family Medicine
DX: M54.2 Cervicalgia (principal)
CPT/HCPCS: 72050